=== PATIENT | female | born 1955 ===

== ENCOUNTER 2017-10-25 17:04 | Emergency (ER) | payer SELFPAY ==
[2017-10-25 17:04] VITALS: BMI 34.7
[2017-10-25] MEDS ORDERED: Sodium Chloride 0.9% 1,000 ML IV STA (17:40)
--- NOTE | 2017-10-25 18:00 | ED PDOC ---
Syncope/Near Syncope/Dizziness Time Seen by Provider: 10/25/17 17:14 Chief Complaint (Nursing): Dizziness/Lightheaded Chief Complaint (Provider): Dizziness/Lightheaded History Per: Patient History/Exam Limitations: no limitations Onset/Duration Of Symptoms: Days (x1) Current Symptoms Are (Timing): Still Present Activity At Onset Of Symptoms: Lying Associated Symptoms Preceding Syncopal Episode: Vertigo Seizure Or Post-ictal Symptoms: None Possible Causative Factor(s): Vertigo Additional Complaint(s): 62 y/o female with a PMHx of DM, HTN, hypercholesterolemia, hypothyroidism, pulmonary emoblism and fractures presents to the ED complaining of vertigo, onset one week ago. Patient reports symptoms worsen when lying flat. Patient additionally reports of same symptoms prior. Patient last took prescribed 25 mg of Meclizine at 12:00 this afternoon with no relief. Patient reports of left posterior headache only when dizzy. Denies headache at this time, chest pain, visual change, neck stiffness, paresthesia and weakness. PMD: [facility] Past Medical History Reviewed: Historical Data, Nursing Documentation, Vital Signs Vital Signs: Last Vital Signs Temp 98.4 F 10/25/17 17:08 Pulse 83 10/25/17 17:08 Resp 17 10/25/17 17:08 BP 152/89 H 10/25/17 17:08 Pulse Ox 98 10/25/17 17:08 - Medical History PMH: Diabetes, Fractures, HTN, Hypercholesterolemia, Hypothyroidism, Pulmonary Embolism - Surgical History Surgical History: Appendectomy - Family History Family History: States: Unknown Family Hx - Home Medications Home Medications: Ambulatory Orders Medication Instructions Recorded Naproxen [Naprosyn] 500 mg PO BID #20 tab 07/16/14 traMADol [Ultram] 50 mg PO QID PRN #20 tab 07/16/14 Meclizine [Meclizine*] 1 tab PO Q6 PRN #30 tab 12/22/15 - Allergies Allergies/Adverse Reactions: Allergies Allergy/AdvReac Type Severity Reaction Status Date / Time No Known Allergies Allergy Verified 12/22/15 11:11 Review of Systems ROS Statement: Except As Marked, All Systems Reviewed And Found Negative Constitutional: Negative for: Weakness Eyes: Negative for: Vision Change Cardiovascular: Negative for: Chest Pain Musculoskeletal: Negative for: Neck Pain Neurological: Positive for: Headache, Other (Vertigo). Negative for: Weakness Physical Exam - Reviewed Nursing Documentation Reviewed: Yes Vital Signs Reviewed: Yes - Physical Exam Appears: Positive for: No Acute Distress Head Exam: Positive for: ATRAUMATIC, NORMOCEPHALIC Skin: Positive for: Normal Color, Warm, Dry Eye Exam: Positive for: Normal appearance, EOMI, PERRL. Negative for: Nystagmus Neck: Positive for: Normal, Painless ROM Cardiovascular/Chest: Positive for: Regular Rate, Rhythm. Negative for: Murmur Respiratory: Positive for: Normal Breath Sounds. Negative for: Respiratory Distress Gastrointestinal/Abdominal: Positive for: Normal Exam, Soft. Negative for: Tenderness Extremity: Positive for: Normal ROM. Negative for: Deformity Neurologic/Psych: Positive for: Alert, Oriented. Negative for: Motor/Sensory Deficits - Laboratory Results Result Diagrams: 10/25/17 17:55 10/25/17 17:55 - ECG Interpretation Of ECG: NSR @ 73, nonspecific ST abnormality. O2 Sat by Pulse Oximetry: 98 (RA) Pulse Ox Interpretation: Normal Medical Decision Making Medical Decision Making: Time: 1754 Impression: Recurrent Vertigo Plan: -- CT Head w/o contrast -- EKG -- CMP -- ED Urine Dipstick -- CBC with differentials -- Antivert 50 mg PO -- Sodium Chloride IV 125 mls/hr -- Glucose, Blood, POC -- Urinalysis Time: [address] RESULTS FINDINGS: Brain: Age-related atrophy and chronic white matter ischemic changes, with no evidence of an acute intracranial abnormality. No hemorrhage. Ventricles: Unremarkable. No ventriculomegaly. Bones/joints: Unremarkable. No acute fracture. Soft tissues: Unremarkable. Vasculature: Atherosclerosis of the vertebral arteries and cavernous carotid arteries Sinuses: Unremarkable as visualized. No acute sinusitis. Mastoid air cells: Unremarkable as visualized. No mastoid effusion. IMPRESSION: No acute findings. No hemorrage, mass effect or subacute territorial infarction CT can miss an acute nonhemorrhagic CVA. Acute strokes may be initially radiologically occult on CT. If the patient is having persistent stroke like symptomatology, then MRI may be beneficial Thank you for allowing us to participate in the care of your patient. Dictated and Authenticated by: Sylvia Stanely MD 10/25/2017 6:57 PM Eastern Time ([place] & [place]) Time: 1900 -- Patient endorsed to Dr. Chance, pending further management and final ER disposition. Scribe Attestation: Documented by Wily Potts acting as a scribe for Mariya Rees MD. Provider Scribe Attestation: All medical record entries made by the Scribe were at my direction and personally dictated by me. I have reviewed the chart and agree that the record accurately reflects my personal performance of the history, physical exam, medical decision making, and the department course for this patient. I have also personally directed, reviewed, and agree with the discharge instructions and disposition. Disposition - Patient ED Disposition Is Patient to be Admitted: Transfer of Care - Disposition Disposition: Transfer of Care Disposition Time: 19:00 Condition: STABLE Forms: [employer] ([place]i) Patient Signed Over To: Chaz Chance
[2017-10-25 18:02] LABS: BASO % 0.3 % (0.0-2.0); EOS # 0.3 K/uL (0.0-0.7); EOS % 2.6 % (0.0-4.0); HEMOGLOBIN 11.4 g/dL (12.0-16.0); LYMPH # 4.5 K/uL (1.0-4.3); LYMPH % 36.1 % (20.0-40.0); MEAN CORPUSCULAR HEMOGLOBIN 19.6 pg (27.0-31.0); MEAN PLATELET VOLUME 8.5 fl (7.2-11.7); MONO # 0.9 K/uL (0.0-0.8); MONO % 7.5 % (0.0-10.0); NEUT # 6.6 K/uL (1.8-7.0); NEUT % 53.5 % (50.0-75.0); RBC 5.8 Mil/uL (3.80-5.20); RED CELL DISTRIBUTION WIDTH 15.8 % (11.5-14.5); WHITE BLOOD COUNT 12.4 K/uL (4.8-10.8)
[2017-10-25 18:15] LABS: ALB/GLOB RATIO 1.2 (1.0-2.1); ALBUMIN 4.2 g/dL (3.5-5.0); ALT/SGPT 30 U/L (9-52); AST/SGOT 25 U/L (14-36); BLOOD UREA NITROGEN 15 mg/dl (7-17); CALCIUM 9.6 mg/dL (8.4-10.2); GFR NON-AFRICAN AMERICAN > 60
[2017-10-25 18:39] LABS: SQUAMOUS EPITHIAL 2 /hpf (0-5); URINE BACTERIA RARE (<OCC); URINE BILIRUBIN NEGATIVE (NEGATIVE); URINE BLOOD NEGATIVE (NEGATIVE); URINE CLARITY CLEAR (Clear); URINE COLOR STRAW (YELLOW); URINE GLUCOSE (UA) 50 mg/dL (Normal); URINE LEUKOCYTE ESTERASE SMALL Leu/uL (Negative); URINE PROTEIN NEGATIVE (NEGATIVE); URINE UROBILINOGEN 0.2-1.0 mg/dL (0.2-1.0)
--- NOTE | 2017-10-25 19:10 | ED PDOC ---
- Laboratory Results Result Diagrams: 10/25/17 17:55 10/25/17 17:55 - ECG O2 Sat by Pulse Oximetry: 98 (RA) Pulse Ox Interpretation: Normal - Progress ED Course And Treament: 2020 Ambulating with steady gait in ED Re-evaluation Time: 20:21 Condition: Re-examined, Improved Medical Decision Making Medical Decision Making: Time: 1899 -- Patient endorsed to me by Dr. Rees, pending further management and final ER disposition. Scribe Attestation: Documented by Wily Potts acting as a scribe for Chaz Chance MD. Provider Scribe Attestation: All medical record entries made by the Scribe were at my direction and personally dictated by me. I have reviewed the chart and agree that the record accurately reflects my personal performance of the history, physical exam, medical decision making, and the department course for this patient. I have also personally directed, reviewed, and agree with the discharge instructions and disposition. Disposition Doctor Will See Patient In The: Office Counseled Patient/Family Regarding: Studies Performed, Diagnosis, Need For Followup - Clinical Impression Clinical Impression: Dizziness, UTI (urinary tract infection) - POA Present On Arrival: None - Disposition Disposition: Routine/Home Disposition Time: 20:23 Condition: GOOD Additional Instructions: HELENA RANDLE, thank you for letting us take care of you today. Your provider was Chaz Chance MD and you were treated for DIZZINESS. The emergency medical care you received today was directed at your acute symptoms. If you were prescribed any medication, please fill it and take as directed. It may take several days for your symptoms to resolve. Return to the Emergency Department if your symptoms worsen, do not improve, or if you have any other problems. Please contact your doctor or call one of the physicians/clinics you have been referred to that are listed on the Patient Visit Information form that is included in your discharge packet. Bring any paperwork you were given at discharge with you along with any medications you are taking to your follow up visit. Our treatment cannot replace ongoing medical care by a primary care provider outside of the emergency department. Thank you for allowing the [facility] team to be part of your care today. If you had an X-Ray or CT scan: A Radiologist will review the ED reading if any change in treatment is needed we will contact you. If you had a blood, urine, or wound culture: It will take several days for the results, if any change in treatment is needed we will contact you. If you had an STI test: It will take 48 hours for the results. Please call after 1 week if you have not heard back. Prescriptions: Meclizine HCl 25 mg PO TID PRN #20 tablet PRN Reason: Dizziness Nitrofurantoin Macrocrystals [Macrobid] 100 mg PO BID #14 cap Instructions: Vertigo (a Type of Dizziness) (DC), Urinary Tract Infections in Adults
[2017-10-25 20:54] VITALS: BP 147/71; PULSE 68; RESP 18; TEMP 98.1; O2SAT 96
[2017-10-25 21:08] LABS: MEAN CELL VOLUME 63.4 fl (81.0-99.0)
--- NOTE | 2017-10-26 07:04 | CARD ---
APPROVED REPORT Date of service: 10/25/2017 EKG Measurement Heart [id number] <Conclusion> Normal sinus rhythm Nonspecific ST abnormality Abnormal ECG
--- NOTE | 2017-10-26 08:33 | CT ---
Date of service: 10/25/2017 PROCEDURE: CT HEAD WITHOUT CONTRAST. HISTORY: Vertigo COMPARISON: None available. TECHNIQUE: Axial computed tomography images were obtained through the head/brain without intravenous contrast. Radiation dose: Total exam DLP = 70.04 mGy-cm. This CT exam was performed using one or more of the following dose reduction techniques: Automated exposure control, adjustment of the mA and/or kV according to patient size, and/or use of iterative reconstruction technique. FINDINGS: HEMORRHAGE: No intracranial hemorrhage. BRAIN: The zepeda-white matter differentiation is well preserved. There is no mass effect or definitive edema pattern appreciated including the cortex. There is reiterated, proportional expansion of the ventriculosulcal and cisternal spaces however in a pattern most compatible with diffuse cerebral atrophy. No suspicious extra-axial fluid collection is identified in the midline brain anatomy appears grossly nonfocal as imaged. VENTRICLES: Unremarkable. No hydrocephalus. CALVARIUM: Unremarkable. PARANASAL SINUSES: Unremarkable as visualized. No significant inflammatory changes. MASTOID AIR CELLS: Unremarkable as visualized. No inflammatory changes. OTHER FINDINGS: None. IMPRESSION: Stable limited diffuse cerebral atrophy without definite acute intracranial findings by standard CT criteria. Follow-up CT or MRI are available if clinically warranted. Concordant preliminary report from [facility], 10/25/2017.
== END 2017-10-25 20:57 | disposition home or self-care (01) ==
LOC: H.ER 17:04
DX: R42 Dizziness and giddiness (principal); N39.0 Urinary tract infection, site not specified; E03.9 Hypothyroidism, unspecified; E11.9 Type 2 diabetes mellitus without complications; E78.00 Pure hypercholesterolemia, unspecified; I10 Essential (primary) hypertension; Z86.711 Personal history of pulmonary embolism
CPT/HCPCS: 70450; 80053; 81003; 82948; 85025; 93005; 99285; J7030